=== PATIENT | male | born 1995 | race African-American/Black ===

== ENCOUNTER 2018-02-15 15:06 | Emergency (ER) | payer SELFPAY ==
[~2018-02-15] VITALS: Ht 177.8 cm; Wt 72.6 kg
[2018-02-15] MEDS ORDERED: SODIUM CHLORIDE 0.9% 1000ML 1,000 ML IV STA (15:17)
[2018-02-15] MEDS ORDERED: DEPAKOTE500 MG (15:20)
[2018-02-15 15:31] LABS: BASOPHILS % 0.2 % (0.0-1.0); HEMATOCRIT 44.6 % (38.2-49.6); HEMOGLOBIN 14.3 g/dL (14.0-18.0); LYMPHOCYTES # (AUTO) 1.4 (1.0-3.2); LYMPHOCYTES % 9.9 % (18.0-39.1); MEAN CORPUSCULAR HEMOGLOBIN 30.3 pg (28-32); MEAN CORPUSCULAR HGB CONC 32.1 g/dL (31-35); MEAN CORPUSCULAR VOLUME 94.5 fL (81-99); MONOCYTES % 6.6 % (4.4-11.3); NEUTROPHILS # (AUTO) 11.9 (2.1-6.9); NEUTROPHILS % 82.5 % (38.7-80.0); PLATELET COUNT 219 x10e3/uL (140-360); RED BLOOD COUNT 4.72 x10e6/uL (4.3-5.7)
[2018-02-15 15:59] LABS: ALANINE AMINOTRANSFERASE 15 IU/L (0-55); ALBUMIN 4.4 g/dL (3.5-5.0); ALBUMIN/GLOBULIN RATIO 1.1 (0.8-2.0); ALKALINE PHOSPHATASE 69 IU/L (40-150); ANION GAP 28.6 mmol/L (8-16); BLOOD UREA NITROGEN 14 mg/dL (7-26); BUN/CREATININE RATIO 10 (6-25); CARBON DIOXIDE 10 mmol/L (22-29); CHLORIDE 106 mmol/L (98-107); CREATININE, SERUM 1.42 mg/dL (0.72-1.25); EST GLOMERULAR FILTRATION RATE > 60 ML/MIN (60-); GLUCOSE 74 mg/dL (74-118); POTASSIUM 4.6 mmol/L (3.5-5.1); SODIUM 140 mmol/L (136-145)
[2018-02-15 16:05] LABS: VALPROIC ACID 84 ug/mL (50-100)
--- NOTE | 2018-02-15 16:05 | Diagnostic Imaging Report ---
Exam: Head CT without contrast History: Seizure. Comparison studies: None Technique: Axial images were obtained from the skull base to the vertex. Coronal and sagittal images reconstructed from the axial data. Dose modulation, iterative reconstruction, and/or weight based adjustment of the mA/kV was utilized to reduce the radiation dose to as low as reasonably achievable. Radiation dose: Total DLP: 1036 mGy*cm. Estimated effective dose: DLP x 0.015 Intravenous contrast: None Findings: Streak artifact from the skull base somewhat limits evaluation of the inferior frontal lobes, temporal lobes and posterior fossa. Scalp: No abnormalities. Bones: No fractures. Incidental 13 mm nonaggressive-appearing sclerotic lesion in the left parietal calvarium near the vertex Brain sulci: Appropriate for age. Ventricles: Normal in size and configuration. No hydrocephalus. Extra-axial spaces: No masses, no fluid collection. Parenchyma: No abnormal densities. No masses, acute hemorrhage, acute or chronic vascular insults. Sellar/suprasellar region: No abnormalities. Craniocervical junction: Patent foramen magnum. No Chiari one malformation. Paranasal sinuses: Scattered polypoid mucosal thickening throughout the paranasal sinuses. The bilateral maxillary sinus and ethmoid air cells are partially opacified. IMPRESSION: 1. No acute intracranial abnormalities. 2. Inflammatory changes in the paranasal sinuses. Signed by: Dr. Davion Espinoza M.D. on 02/15/2018 4:02 PM
[2018-02-15 16:48] LABS: STREPTOCOCCUS GRP A ANTIGEN NEGATIVE (NEGATIVE)
--- NOTE | 2018-02-15 16:49 | Diagnostic Imaging Report ---
EXAM: CHEST SINGLE (PORTABLE), AP Portable DATE: 02/15/2018 Time stamp on exam: 3:55 PM INDICATION: Seizure COMPARISON: None FINDINGS: LINES/TUBES: None LUNGS: No consolidations or edema. PLEURA: No effusions or pneumothorax. HEART AND MEDIASTINUM: Normal size and contour. BONES AND SOFT TISSUES: No acute findings. IMPRESSION: No acute thoracic abnormality. Signed by: Dr. Andi Barriga DO on 02/15/2018 4:46 PM
[2018-02-15] MEDS ORDERED: VALPROATE SOD INJ 500 MG in SODIUM CHLORIDE 0.9% 100 ML 100 ML IV STA (16:54)
[2018-02-15 16:59] LABS: INFLUENZAE A&B ANTIGEN (RAPID) NEGATIVE (NEGATIVE)
[2018-02-15] MEDS ORDERED: VALPROATE SOD 500 MG/5 ML ONE (17:16)
[2018-02-15] MEDS ORDERED: SODIUM CHLORIDE 0.9% 100 ML ONE (17:34)
[2018-02-15 19:08] LABS: AMPHETAMINES SCREEN,URINE NEGATIVE (NEGATIVE); BENZODIAZEPINES SCREEN,URINE NEGATIVE (NEGATIVE); BILIRUBIN,URINE NEGATIVE (NEGATIVE); CLARITY,URINE SL CLOUDY (CLEAR); COLOR,URINE YELLOW (YELLOW); KETONES,URINE 1+ (NEGATIVE); LEUKOCYTE ESTERASE ,URINE NEGATIVE (NEGATIVE); NITRITE,URINE NEGATIVE (NEGATIVE); PHENCYCLIDINE SCREEN,URINE NEGATIVE (NEGATIVE); PROTEIN,URINE DIPSTICK NEGATIVE (NEGATIVE); URINE UROBILINOGEN 0.2 mg/dL (0.2 - 1)
[2018-02-15 19:16] LABS: EPITHELIAL CELLS,URINE FEW /LPF; RBC,URINE 0-5 /HPF (0-5)
== END 2018-02-15 20:20 | disposition home or self-care (01) ==
LOC: ER 15:06
DX: G40.909 Epilepsy, unspecified, not intractable, without status epilepticus (principal)
CPT/HCPCS: 36415; 70450; 71045; 80053; 80164; 80307; 81001; 83518; 85025; 87070; 87400; 93005; 99284; J7030; J7050